=== PATIENT | female | born 1955 | race Caucasian/White ===

== ENCOUNTER 2018-04-04 10:48 | Observation (INO) | payer BC ==
[2018-04-04] MEDS ORDERED: Nitroglycerin 0.4 MG Tab.SL ONE (11:03)
[2018-04-04] MEDS ORDERED: Aspirin 81 MG Tab.Chew PO ONE ×2 (11:03→12:03)
[2018-04-04] MEDS ORDERED: Nitroglycerin 0.4 MG Tab.SL SL ONE (11:03)
[2018-04-04] MEDS ORDERED: Aspirin 81 MG Tab.Chew ONE (11:03)
[2018-04-04] MEDS ORDERED: Clopidogrel 75 MG Tab PO ONE (11:11)
[2018-04-04] MEDS ORDERED: Metoprolol Tartrate 25 MG Tab PO ONE (11:13)
[2018-04-04] MEDS ORDERED: Metoprolol Tartrate 25 MG Tab ONE (11:15)
[2018-04-04] MEDS: Sodium Chloride 0.9% 1,000 ML IV SCH (11:31)
--- NOTE | 2018-04-04 11:31 | EDM.PDOC ---
ED HPI GENERAL MEDICAL PROBLEM - General Chief Complaint: Chest Pain Stated Complaint: chest pain Time Seen by Provider: 04/04/18 11:15 Source of Information: Reports: Patient, RN Notes Reviewed History Limitations: Reports: No Limitations - History of Present Illness INITIAL COMMENTS - FREE TEXT/NARRATIVE: Patient is a 62-year-old female who presents to the ER with chest pain patient states it's a 5 out of 10 pain started at 9:30. Patient has been having increased stress much more than usual secondary to family, also was hyperventilating at the time of admission to the ER, anxious, and diaphoretic on arrival.Her initial blood pressure was 176/99, EKG showed sinus rhythm with premature atrial complexes at this time we will go ahead and do a chest pain protocol since patient has significant chest pain IV started nitroglycerin which had two affects one was to relieve the chest pain the other affect was reduction of blood pressure. Onset: Today, Sudden Duration: Hour(s):, Improving Location: Reports: Chest Quality: Reports: Ache, Pressure Severity: Moderate Improves with: Reports: Medication Worsens with: Reports: Movement Context: Reports: Activity Associated Symptoms: Reports: Chest Pain - Related Data Allergies Allergy/AdvReac Type Severity Reaction Status Date / Time No Known Allergies Allergy Verified 04/04/18 10:56 Home Meds: Home Meds Lisinopril 2.5 mg PO BEDTIME 04/04/18 [History] Mirtazapine 15 mg PO BEDTIME 04/04/18 [History] ED ROS GENERAL - Review of Systems Review Of Systems: See Below Constitutional: Reports: Weakness, Diaphoresis HEENT: Reports: No Symptoms Respiratory: Reports: Shortness of Breath Cardiovascular: Reports: Chest Pain, Blood Pressure Problem Endocrine: Reports: No Symptoms GI/Abdominal: Reports: Nausea : Reports: No Symptoms Musculoskeletal: Reports: No Symptoms Skin: Reports: Diaphoresis Neurological: Reports: No Symptoms Psychiatric: Reports: No Symptoms Hematologic/Lymphatic: Reports: No Symptoms Immunologic: Reports: No Symptoms ED EXAM, GENERAL - Physical Exam Exam: See Below Exam Limited By: No Limitations General Appearance: Alert, WD/WN, No Apparent Distress, Mild Distress Eye Exam: Bilateral Eye: EOMI, PERRL Ears: Normal External Exam, Normal Canal, Hearing Grossly Normal, Normal TMs Ear Exam: Bilateral Ear: Auricle Normal, Canal Normal, TM normal Nose: Normal Inspection, Normal Mucosa, No Blood Throat/Mouth: Normal Inspection, Normal Lips, Normal Teeth, Normal Gums, Normal Oropharynx, Normal Voice, No Airway Compromise Head: Atraumatic, Normocephalic Neck: Normal Inspection, Supple, Non-Tender, Full Range of Motion Respiratory/Chest: Lungs Clear Cardiovascular: No Murmur, No Rub, Irregularly Irregular GI/Abdominal: Normal Bowel Sounds, Soft, Non-Tender, No Organomegaly, No Distention, No Abnormal Bruit, No Mass (Female) Exam: Deferred Rectal (Female) Exam: Deferred Back Exam: Normal Inspection, Full Range of Motion, NT Extremities: Normal Inspection, Normal Range of Motion, Non-Tender, Normal Capillary Refill, No Pedal Edema Neurological: Alert, Oriented, CN II-XII Intact, Normal Cognition, Normal Gait, Normal Reflexes, No Motor/Sensory Deficits Psychiatric: Normal Affect, Normal Mood Skin Exam: Warm, Dry, Intact, Normal Color, No Rash Lymphatic: No Adenopathy Course - Vital Signs Last Recorded V/S: Last Vital Signs Temp Pulse 69 04/04/18 11:15 Resp BP 138/79 04/04/18 11:15 Pulse Ox - Orders/Labs/Meds Orders: Active Orders 24 hr Category Date Time Status EKG Documentation Completion [RC] ASDIRECTED Care 04/04/18 11:10 Active Chest 1V Frontal [CR] Stat Exams 04/04/18 11:10 Ordered CK W CKMB [CHEM] Routine Lab 04/04/18 11:05 Received COMPREHENSIVE METABOLIC PN,CMP [CHEM] Routine Lab 04/04/18 11:05 Received D-DIMER QUANTITATIVE [COAG] Routine Lab 04/04/18 11:05 Received INR,PT,PROTHROMBIN TIME [COAG] Routine Lab 04/04/18 11:05 Received LACTIC ACID [CHEM] Routine Lab 04/04/18 11:05 Received MAGNESIUM [CHEM] Routine Lab 04/04/18 11:05 Received PRO B-TYPE NATRIUR PEPT,BNPPRO [CHEM] Routine Lab 04/04/18 11:05 Received PTT,PARTIAL THROMBOPLSTIN TIME [COAG] Routine Lab 04/04/18 11:05 Received EKG 12 Lead [EK] Routine Ther 04/04/18 11:00 Ordered Labs: Laboratory Tests 04/04/18 Range/Units 11:05 WBC 8.8 (4.0-10.2) K/uL RBC 4.17 (3.77-5.09) M/uL Hgb 13.3 (11.7-15.5) g/dL Hct 38.6 (34.0-46.0) % MCV 92.6 (84.0-98.0) fL MCH 31.9 (28.2-33.3) pg MCHC 34.5 (31.7-36.0) g/dL RDW 13.3 (11.2-14.1) % Plt Count 270 (150-350) K/uL Neut % (Auto) 42.0 L (45.0-80.0) % Lymph % (Auto) 46.4 (10.0-50.0) % [place] % (Auto) 10.0 (2.0-14.0) % Eos % (Auto) 1.4 (0.0-5.0) % Baso % (Auto) 0.2 (0.0-2.0) % Neut # (Auto) 3.72 (1.40-7.00) K/uL Lymph # (Auto) 4.10 H (0.50-3.50) K/uL [place] # (Auto) 0.88 (0.00-1.00) K/uL Eos # (Auto) 0.12 (0.00-0.50) K/uL Baso # (Auto) 0.02 (0.00-0.20) K/uL Meds: Medications Discontinued Medications Generic Name Dose Route Start Last Admin Trade Name Freq PRN Reason Stop Dose Admin Aspirin Confirm 04/04/18 11:03 Aspirin Administered 04/04/18 11:04 Dose 324 mg .ROUTE .STK-MED ONE Aspirin 324 mg 04/04/18 11:03 Aspirin PO 04/04/18 11:04 ONETIME ONE Clopidogrel Bisulfate 300 mg 04/04/18 11:11 04/04/18 11:15 Plavix PO 04/04/18 11:12 300 mg ONETIME ONE Administration Metoprolol Tartrate 25 mg 04/04/18 11:13 04/04/18 11:15 Lopressor PO 04/04/18 11:14 25 mg ONETIME ONE Administration Metoprolol Tartrate Confirm 04/04/18 11:15 Lopressor Administered 04/04/18 11:16 Dose 25 mg .ROUTE .STK-MED ONE Nitroglycerin Confirm 04/04/18 11:03 Nitrostat Administered 04/04/18 11:04 Dose 0.4 mg .ROUTE .STK-MED ONE Nitroglycerin 0.4 mg 04/04/18 11:03 Nitrostat SL 04/04/18 11:04 ONETIME ONE Departure - Departure Time of Disposition: 11:41 Disposition: Refer to Observation Condition: Good Clinical Impression: Atypical chest pain Referrals: Amy Hinojosa MD [Primary Care Provider] - Care Plan Goals: Patient will be admitted for observation to rule out [place]. - My Orders Last 24 Hours: My Active Orders 04/04/18 11:00 EKG 12 Lead [EK] Routine 04/04/18 11:05 CK W CKMB [CHEM] Routine COMPREHENSIVE METABOLIC PN,CMP [CHEM] Routine D-DIMER QUANTITATIVE [COAG] Routine INR,PT,PROTHROMBIN TIME [COAG] Routine LACTIC ACID [CHEM] Routine MAGNESIUM [CHEM] Routine PRO B-TYPE NATRIUR PEPT,BNPPRO [CHEM] Routine PTT,PARTIAL THROMBOPLSTIN TIME [COAG] Routine 04/04/18 11:10 EKG Documentation Completion [RC] ASDIRECTED Chest 1V Frontal [CR] Stat - Assessment/Plan Last 24 Hours: My Active Orders 04/04/18 11:00 EKG 12 Lead [EK] Routine 04/04/18 11:05 CK W CKMB [CHEM] Routine COMPREHENSIVE METABOLIC PN,CMP [CHEM] Routine D-DIMER QUANTITATIVE [COAG] Routine INR,PT,PROTHROMBIN TIME [COAG] Routine LACTIC ACID [CHEM] Routine MAGNESIUM [CHEM] Routine PRO B-TYPE NATRIUR PEPT,BNPPRO [CHEM] Routine PTT,PARTIAL THROMBOPLSTIN TIME [COAG] Routine 04/04/18 11:10 EKG Documentation Completion [RC] ASDIRECTED Chest 1V Frontal [CR] Stat
[2018-04-04 11:42] LABS: CHLORIDE,CL 101 mmol/L (98-107); SODIUM,NA 137 mmol/L (136-145)
[2018-04-04] MEDS ORDERED: Nitroglycerin 0.4 MG Tab.SL SL PRN (12:05)
[2018-04-04] MEDS: Pantoprazole 40 MG Tab.CR PO SCH (13:10)
[2018-04-04] MEDS: LORazepam 0.5 MG Tab PO PRN ×2 (13:10→19:44)
[2018-04-04] MEDS: Metoprolol Tartrate 25 MG Tab PO SCH (19:43)
[2018-04-05] MEDS: Sodium Chloride 0.9% 1,000 ML IV SCH (01:09)
[2018-04-05 07:42] LABS: CHLORIDE,CL 107 mmol/L (98-107); SODIUM,NA 142 mmol/L (136-145)
[2018-04-05] MEDS: Pantoprazole 40 MG Tab.CR PO SCH (07:50)
[2018-04-05] MEDS: Metoprolol Tartrate 25 MG Tab PO SCH (07:50)
[2018-04-05] MEDS ORDERED: Pantoprazole 40 MG Tab.CR PO SCH (08:00)
[2018-04-05] MEDS ORDERED: Aspirin 81 MG Tab.Chew PO SCH (08:00)
--- NOTE | 2018-04-05 11:50 | PCM.DCSUM1 ---
Discharge Summary - Hospital Course Free Text/Narrative:: Patient is a 62-year-old was admitted with chest pain rule out [place] troponins 3 were negative she feels much better and would like to go home today at this time we will discharge her we will send her home with Ativan 0.51 tablet every 6 hours when necessary plus metoprolol tartrate 25 mg once a day and an aspirin 81 mg once a day. We will go ahead and order cardiac stress test. - Discharge Data Discharge Date: 04/05/18 Discharge Disposition: Home, Self-Care 01 Condition: Good - Discharge Diagnosis/Problem(s) (1) Anxiety SNOMED Code(s): 28095673 ICD Code: F41.9 - ANXIETY DISORDER, UNSPECIFIED Status: Acute Current Visit: Yes (2) Atypical chest pain SNOMED Code(s): 630476450 ICD Code: R07.89 - OTHER CHEST PAIN Status: Acute Current Visit: Yes - Patient Summary/Data Recommended Follow-up Testing/Procedures: Follow-up with Dr. carlton in about 10 days we'll schedule her for a Cardiolite stress test. Hospital Course: Patient did quite well no further chest pain troponins 3 were negative - Patient Instructions Diet: Heart Healthy Diet Activity: As Tolerated Driving: May Drive Today Showering/Bathing: May Shower - Discharge Plan Home Medications: Home Meds Cetirizine [ZyrTEC] 10 mg PO DAILY 04/04/18 [History] Fish Oil/[place]-3 Fatty Acids [Fish Oil 1,000 MG] 1 each PO DAILY 04/04/18 [ History] Lisinopril 2.5 mg PO BEDTIME 04/04/18 [History] Mirtazapine 15 mg PO BEDTIME 04/04/18 [History] Multivitamin [Multi-Vitamin Daily] 1 tab PO DAILY 04/04/18 [History] Metoprolol Succinate [Toprol XL] 25 mg PO DAILY #30 tab.er 04/05/18 [Rx] Patient Handouts: Generalized Anxiety Disorder, Adult, Metoprolol tablets, Nonspecific Chest Pain, [id number], Aspirin and Your Heart, Nitroglycerin sublingual tablets, Pantoprazole tablets, Lorazepam tablets Forms: ED Department Discharge Referrals: Charlie-Amy Rosales MD [Primary Care Provider] - - Discharge Summary/Plan Comment DC Time >30 min.: No Discharge Summary/Plan Comment: Final diagnosis chest pain atypical unknown we'll go ahead and do a stress test as soon as possible Anxiety we'll go ahead and start her on Ativan 0.5 one tablet 6 hours when necessary she is to follow-up with primary. - General Info Date of Service: 04/05/18 Functional Status: Reports: Tolerating Diet - Review of Systems General: Reports: No Symptoms HEENT: Reports: No Symptoms Pulmonary: Reports: No Symptoms Cardiovascular: Reports: No Symptoms Gastrointestinal: Reports: No Symptoms Genitourinary: Reports: No Symptoms Musculoskeletal: Reports: No Symptoms Skin: Reports: No Symptoms Neurological: Reports: No Symptoms Psychiatric: Reports: Anxiety - Patient Data Vitals - Most Recent: Last Vital Signs Temp 97.6 F 04/05/18 08:00 Pulse 65 04/05/18 08:00 Resp 15 04/05/18 08:00 BP 117/67 04/05/18 08:00 Pulse Ox 98 04/05/18 08:00 Weight - Most Recent: 179 lb 1.586 oz I&O - Last 24 hours: Intake & Output 04/04/18 04/05/18 04/05/18 22:59 06:59 14:59 Intake Total 1793 720 Balance 1793 720 Lab Results - Last 24 hrs: Laboratory Results - last 24 hr 04/04/18 04/04/18 04/04/18 Range/Units 11:05 17:00 22:45 WBC (4.0-10.2) K/uL RBC (3.77-5.09) M/uL Hgb (11.7-15.5) g/dL Hct (34.0-46.0) % MCV (84.0-98.0) fL MCH (28.2-33.3) pg MCHC (31.7-36.0) g/dL RDW (11.2-14.1) % Plt Count (150-350) K/uL Neut % (Auto) (45.0-80.0) % Lymph % (Auto) (10.0-50.0) % [place] % (Auto) (2.0-14.0) % Eos % (Auto) (0.0-5.0) % Baso % (Auto) (0.0-2.0) % Neut # (Auto) (1.40-7.00) K/uL Lymph # (Auto) (0.50-3.50) K/uL [place] # (Auto) (0.00-1.00) K/uL Eos # (Auto) (0.00-0.50) K/uL Baso # (Auto) (0.00-0.20) K/uL Sodium 137 (136-145) mmol/L Potassium 3.9 (3.5-5.1) mmol/L Chloride 101 (98-107) mmol/L Carbon Dioxide 23.6 (21.0-32.0) mmol/L BUN 16 (7-18) mg/dL Creatinine 0.85 (0.51-1.17) mg/dL Est Cr Clr Drug Dosing TNP Estimated GFR (MDRD) > 60 mL/min Glucose 106 (74-106) mg/dL Calcium 9.5 (8.5-10.1) mg/dL Magnesium 1.8 (1.8-2.4) mg/dL Total Bilirubin 0.3 (0.2-1.0) mg/dL AST 23 (15-37) U/L ALT 34 (12-78) U/L Alkaline Phosphatase 77 (46-116) IU/L Creatine Kinase 229 (26-308) U/L Creatine Kinase Index 2.1 (0.0-2.5) % CK-MB (CK-2) 4.90 H* (0.00-3.60) ng/mL Troponin I 0.000 0.001 0.000 (0.000-0.056) ng/mL NT-Pro-B Natriuret Pep 78 (0-125) pg/mL Total Protein 7.5 (6.4-8.2) g/dL Albumin 4.0 (3.4-5.0) g/dL 04/05/18 04/05/18 Range/Units 06:40 06:40 WBC 5.5 (4.0-10.2) K/uL RBC 4.00 (3.77-5.09) M/uL Hgb 12.6 (11.7-15.5) g/dL Hct 37.6 (34.0-46.0) % MCV 94.0 (84.0-98.0) fL MCH 31.5 (28.2-33.3) pg MCHC 33.5 (31.7-36.0) g/dL RDW 13.3 (11.2-14.1) % Plt Count 244 (150-350) K/uL Neut % (Auto) 34.2 L (45.0-80.0) % Lymph % (Auto) 53.4 H (10.0-50.0) % [place] % (Auto) 10.0 (2.0-14.0) % Eos % (Auto) 2.0 (0.0-5.0) % Baso % (Auto) 0.4 (0.0-2.0) % Neut # (Auto) 1.89 (1.40-7.00) K/uL Lymph # (Auto) 2.94 (0.50-3.50) K/uL [place] # (Auto) 0.55 (0.00-1.00) K/uL Eos # (Auto) 0.11 (0.00-0.50) K/uL Baso # (Auto) 0.02 (0.00-0.20) K/uL Sodium 142 (136-145) mmol/L Potassium 4.3 (3.5-5.1) mmol/L Chloride 107 (98-107) mmol/L Carbon Dioxide 28.4 (21.0-32.0) mmol/L BUN 9 (7-18) mg/dL Creatinine 0.80 (0.51-1.17) mg/dL Est Cr Clr Drug Dosing 68.63 Estimated GFR (MDRD) > 60 mL/min Glucose 91 (74-106) mg/dL Calcium 8.5 (8.5-10.1) mg/dL Magnesium (1.8-2.4) mg/dL Total Bilirubin 0.3 (0.2-1.0) mg/dL AST 21 (15-37) U/L ALT 24 (12-78) U/L Alkaline Phosphatase 69 (46-116) IU/L Creatine Kinase (26-308) U/L Creatine Kinase Index (0.0-2.5) % CK-MB (CK-2) (0.00-3.60) ng/mL Troponin I (0.000-0.056) ng/mL NT-Pro-B Natriuret Pep (0-125) pg/mL Total Protein 6.3 L (6.4-8.2) g/dL Albumin 3.1 L (3.4-5.0) g/dL Med Orders - Current: Current Medications Aspirin (Aspirin) 81 mg PO DAILY [facility] Last Admin: 04/05/18 07:51 Dose: 81 mg Sodium Chloride (Normal Saline) 1,000 mls @ 75 mls/hr IV ASDIRECTED [facility] Last Admin: 04/05/18 01:09 Dose: 75 mls/hr Lorazepam (Ativan) 1 mg PO Q6H PRN PRN Reason: Anxiety Last Admin: 04/04/18 19:44 Dose: 1 mg Metoprolol Tartrate (Lopressor) 25 mg PO Q12HR [facility] Last Admin: 04/05/18 07:50 Dose: 25 mg Nitroglycerin (Nitrostat) 0.4 mg SL Q5M PRN PRN Reason: Chest Pain Pantoprazole Sodium (Protonix) 40 mg PO DAILY [facility] Last Admin: 04/05/18 07:50 Dose: 40 mg Discontinued Medications Aspirin (Aspirin) Confirm Administered Dose 324 mg .ROUTE .STK-MED ONE Stop: 04/04/18 11:04 Last Admin: 04/04/18 11:20 Dose: Not Given Aspirin (Aspirin) 324 mg PO ONETIME ONE Stop: 04/04/18 11:04 Last Admin: 04/04/18 11:05 Dose: 324 mg Aspirin (Aspirin) 324 mg PO DAILY ONE Stop: 04/04/18 12:04 Last Admin: 04/04/18 12:33 Dose: Not Given Clopidogrel Bisulfate (Plavix) 300 mg PO ONETIME ONE Stop: 04/04/18 11:12 Last Admin: 04/04/18 11:15 Dose: 300 mg Metoprolol Tartrate (Lopressor) 25 mg PO ONETIME ONE Stop: 04/04/18 11:14 Last Admin: 04/04/18 11:15 Dose: 25 mg Metoprolol Tartrate (Lopressor) Confirm Administered Dose 25 mg .ROUTE .STK-MED ONE Stop: 04/04/18 11:16 Last Admin: 04/04/18 11:21 Dose: Not Given Nitroglycerin (Nitrostat) Confirm Administered Dose 0.4 mg .ROUTE .STK-MED ONE Stop: 04/04/18 11:04 Last Admin: 04/04/18 11:20 Dose: Not Given Nitroglycerin (Nitrostat) 0.4 mg SL ONETIME ONE Stop: 04/04/18 11:04 Last Admin: 04/04/18 11:05 Dose: 0.4 mg - Exam General: Reports: Alert, Oriented, Cooperative, No Acute Distress HEENT: Reports: Pupils Equal, Pupils Reactive, EOMI Neck: Reports: Supple Lungs: Reports: Clear to Auscultation, Normal Respiratory Effort Cardiovascular: Reports: Regular Rate, Regular Rhythm GI/Abdominal Exam: Normal Bowel Sounds, Soft, Non-Tender, No Organomegaly, No Distention, No Abnormal Bruit, No Mass, Pelvis Stable (Female) Exam: Normal External Exam, Normal Speculum Exam, Normal Bimanual Exam Back Exam: Reports: Normal Inspection, Full Range of Motion Extremities: Normal Inspection, Normal Range of Motion, Non-Tender, No Pedal Edema, Normal Capillary Refill Skin: Reports: Warm, Dry, Intact EKG INTERPRETATION Rhythm: NSR [place]: Normal P-Wave: Present QRS: Normal ST-T: Normal QT: Normal
== END 2018-04-05 12:08 | disposition home or self-care (01) ==
LOC: LL.ED 10:48 → LL.MS 12:09
PROVIDERS: ADMIT Family Medicine; ATTEND Family Medicine
DX: R07.89 Other chest pain (principal); F41.9 Anxiety disorder, unspecified; Z79.899 Other long term (current) drug therapy
CPT/HCPCS: 36415; 71045; 71046; 80053; 82550; 82553; 83605; 83735; 83880; 84484; 85025; 85379; 85610; 85730; 93005; 96360; 99285; A9270-GY; G0378; J7030